=== PATIENT | female | born 1940 | race Caucasian/White ===

== ENCOUNTER 2021-05-31 09:19 | Day surgery (SDC) | payer MEDICARE, OTHER ==
[2021-05-30 11:57] VITALS: BMI 25.4
[~2021-05-31 09:19] MED LIST: LACTATED RINGERS 1,000 ML IV SCH
[2021-05-31 09:56] VITALS: TEMP 97.6
[2021-05-31] MEDS ORDERED: LIDOCAINE 1% INJ 10MG/ML (20 ML MDV) ONE (10:46)
[2021-05-31] MEDS ORDERED: PROPOFOL 10 MG/ML 20 ML VIAL IV ONE (10:46)
--- NOTE | 2021-05-31 11:18 | P.PCN ---
Date of Procedure: 05/31/21 Procedure(s) Performed: Brief history: Patient is a pleasant 80-year-old pleasant white female scheduled for an elective upper endoscopy as well as colonoscopy as a part of evaluation of I deficiency anemia. No prior history of EGD or colonoscopy in the past. She denies any GI symptoms. Procedure performed: Esophagogastroduodenoscopy with biopsy Colonoscopy with argon plasma coagulation Preoperative diagnosis: Iron deficiency anemia Anesthesia: MAC Procedure: After informed consent was obtained from the patient was brought into the endoscopy unit and IV sedation was administered by anesthesia under continuous monitoring. Initially upper endoscopy was done. The Olympus GF 160 video end oscope was inserted inserted into the mouth and esophagus intubated without any difficulty and was gradually advanced into the stomach and duodenum and carefully examined. The bulb and second part of the duodenum appeared normal. The scope was then withdrawn into the stomach adequately insufflated with air and upon careful examination the antrum and body, cardia and fundus appeared normal. The scope was then withdrawn into the esophagus. The GE junction was located at 40 cm to the incisors. It appeared regular with no erythema erosions or ulcerations. Rest of the esophagus appeared normal. Patient tolerated the procedure well. At this time the patient continued to remain sedation. Initial digital rectal examination was normal. Olympus CF 160 video colonoscope was then inserted into the rectum and gradually advanced to the cecum with mild to moderate difficulty. Careful examination was performed as the scope was gradually being withdrawn. The prep was fair. In the base of the cecum there was a 1 cm nonbleeding arteriovenous malformation that was coagulated using argon plasma. The rest of the cecum, ascending colon, transverse colon, descending colon, sigmoid colon and rectum appeared normal. Moderate sigmoid diverticulosis seen. Retroflexion was performed in the rectum and no lesions were noted. Patient tolerated the procedure well. Impression: 1. Upper endoscopy revealed mild antral gastritis 2. 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 She was advised to follow with the biopsy results. She will continue with iron supplements and monitor CBC on a frequent basis.
[2021-05-31 11:37] VITALS: BP 128/74; PULSE 80; RESP 20
== END 2021-05-31 12:00 | disposition home or self-care (01) ==
LOC: ORWHC2ENDO 09:19
PROVIDERS: ATTEND Internal Medicine Gastroenterology
DX: K29.50 Unspecified chronic gastritis without bleeding (principal); Q27.33 Arteriovenous malformation of digestive system vessel; K57.30 Diverticulosis of large intestine without perforation or abscess without bleeding; D50.9 Iron deficiency anemia, unspecified; Z97.2 Presence of dental prosthetic device (complete) (partial); Z79.1 Long term (current) use of non-steroidal anti-inflammatories (NSAID); Z79.899 Other long term (current) drug therapy
CPT/HCPCS: 88305; 43239; 45388; J2001; J2704; 45382

== ENCOUNTER 2023-09-29 19:50 | Emergency (ER) | payer MEDICARE, OTHER ==
--- NOTE | 2023-09-29 19:52 | ED ---
General Adult HPI - General Source: patient, family, RN notes reviewed Mode of arrival: ambulatory Limitations: altered mental status <Jeffrey Epstein - Last Filed: 09/29/23 19:52> - General Source: patient, family, RN notes reviewed Mode of arrival: ambulatory Limitations: no limitations <Ovidio Lynch - Last Filed: 09/29/23 21:14> - General Stated complaint: FALL Time Seen by Provider: 09/29/23 19:52 - History of Present Illness Initial comments: 83-year-old female presents emergency Department with family for evaluation of fall, head injury. Patient fell around 3 afternoon patient has been very confused and % patient's noted have elevated blood pressure. Patient denies any blood thinners. (Jeffrey Epstein) Patient is a pleasant 83-year-old female presenting to the emergency department following a fall. Incident occurred today. Patient tripped and fell and landed striking her left forehead. Patient only has discomfort with motion of this area otherwise no discomfort at all. No neck or back pain. Patient does not feel confused. Family is concerned that patient is not oriented to the day. Normally patient is. No chest pain or dyspnea. No extremity injury. (Ovidio Lynch) - Related Data Home Medications Medication Instructions Recorded Confirmed Calcium Carbonate/Vitamin D3 1 each PO DAILY 05/31/21 05/31/21 [Calcium 500 mg Chewable Tablet] Cholecalciferol (Vitamin D3) 4,000 unit PO DAILY 05/31/21 05/31/21 [Vitamin D3 (4,000 Iu)] Multivitamin [Multivitamins Adult 1 each PO DAILY 05/31/21 05/31/21 Gummies] Topiramate 50 mg PO BID 05/31/21 05/31/21 Allergies Allergy/AdvReac Type Severity Reaction Status Date / Time No Known Allergies Allergy Verified 09/29/23 20:23 Review of Systems ROS Other: All systems not noted in ROS Statement are negative. <Jeffrey Epstein - Last Filed: 09/29/23 19:52> ROS Other: All systems not noted in ROS Statement are negative. Constitutional: Denies: fever Eyes: Denies: eye pain ENT: Denies: ear pain Respiratory: Denies: cough, dyspnea Cardiovascular: Denies: chest pain Endocrine: Denies: fatigue Gastrointestinal: Denies: abdominal pain Genitourinary: Denies: urgency Musculoskeletal: Denies: back pain Neurological: Reports: as per HPI <Ovidio Lynch - Last Filed: 09/29/23 21:14> ROS Statement: Those systems with pertinent positive or pertinent negative responses have been documented in the HPI. Past Medical History Past Medical History: Osteoarthritis (OA) Additional Past Medical History / Comment(s): "blood work is low", tremors, History of Any Multi-Drug Resistant Organisms: None Reported Past Surgical History: Appendectomy Additional Past Surgical History / Comment(s): EGD, ria cataracts Past Anesthesia/Blood Transfusion Reactions: No Reported Reaction Smoking Status: Former smoker - Past Family History Mother Family Medical History: No Reported History <LucianJeffrey Mcleod - Last Filed: 09/29/23 19:52> General Exam General appearance: alert, in no apparent distress <LucianJeffrey Mcleod - Last Filed: 09/29/23 19:52> Limitations: no limitations General appearance: alert, in no apparent distress Head exam: Present: other (Abrasions above the left eyebrow. No other areas of swelling or tenderness.) Eye exam: Present: normal appearance, PERRL, EOMI ENT exam: Present: normal oropharynx Neck exam: Present: normal inspection. Absent: tenderness Respiratory exam: Present: normal lung sounds bilaterally Cardiovascular Exam: Present: regular rate, normal rhythm GI/Abdominal exam: Present: soft. Absent: tenderness Neurological exam: Present: alert, CN II-XII intact. Absent: motor sensory deficit Expanded Patient oriented to: Present: person, place. Absent: time (Patient is oriented to month and year but not daily) Cranial nerves: EOM's Intact: Normal, Facial Sensation: Normal Sensory exam: Upper Extremity Light Touch: Normal, Lower Extremity Light Touch: Normal Motor strength exam: RUE: 5, LUE: 5, RLE: 5, LLE: 5 Eye Response: (4) open spontaneously Motor Response: (6) obeys commands Verbal Response: (4) confused conversation Psychiatric exam: Present: normal affect, normal mood Skin exam: Present: normal color <Ovidio Lynch - Last Filed: 09/29/23 21:14> - General Exam Comments Initial Comments: Visual Physical Exam Vital signs reviewed General: Well-appearing, nontoxic, no acute distress. Head: Normocephalic, atraumatic Eyes: PERRLA, EOMI ENT: Airway patent Chest: Nonlabored breathing Skin: No visual rash, normal skin tone Neuro: Alert and oriented 3 Musculoskeletal: No gross abnormalities (Jeffrey Epstein) Course Vital Signs 09/29/23 09/29/23 20:17 21:03 Temperature 98.2 F Pulse Rate 119 H 89 Respiratory 17 17 Rate Blood Pressure 160/97 161/85 O2 Sat by Pulse 96 96 Oximetry Medical Decision Making <Jeffrey Epstein - Last Filed: 09/29/23 19:52> <Ovidio Lynch - Last Filed: 09/29/23 21:14> - Medical Decision Making I completed the quick note portion of this chart signed Jeffrey Epstein PA-C (Jeffrey Epstein) Was pt. sent in by a medical professional or institution ([facility], ORDER PICKER/ASSEMBLER, urgent care, hospital, or fdc...) When possible be specific @ -No Did you speak to anyone other than the patient for history (EMS, parent, family, police, friend...)? What history was obtained from this source @ -Family also provide history of the incident Did you review nursing and triage notes (agree or disagree)? Why? @ -I reviewed and agree with nursing and triage notes Were old charts reviewed (outside hosp., previous admission, EMS record, old EKG, old radiological studies, urgent care reports/EKG's, fdc records)? Report findings @ -No old charts were reviewed Differential Diagnosis (chest pain, altered mental status, abdominal pain women, abdominal pain men, vaginal bleeding, weakness, fever, dyspnea, syncope, headache, dizziness, GI bleed, back pain, seizure, CVA, palpatations, mental health, musculoskeletal)? @ -not applicable EKG interpreted by me (3pts min.). @ -As above X-rays interpreted by me (1pt min.). @ -None done CT interpreted by me (1pt min.). @ -Computed tomography scan of the brain shows some erosion of the right high temporal/parietal region. No acute intercranial process. CT cervical spine report reviewed U/S interpreted by me (1pt. min.). @ -None done What testing was considered but not performed or refused? (CT, X-rays, U/S, labs)? Why? @ -None What meds were considered but not given or refused? Why? @ -None Did you discuss the management of the patient with other professionals (professionals i.e. DrGarcia, PA, ORDER PICKER/ASSEMBLER, lab, RT, psych nurse, social worker psychiatric, architecture drafter, teacher, loss prevention officer, comp field case manager)? Give summary @ -No Was smoking cessation discussed for >3mins.? @ -No Was critical care preformed (if so, how long)? @ -No Were there social determinants of health that impacted care today? How? (Homelessness, low income, unemployed, alcoholism, drug addiction, transportation, low edu. Level, literacy, decrease access to med. care, fdc, rehab)? @ -No Was there de-escalation of care discussed even if they declined (Discuss DNR or withdrawal of care, Hospice)? DNR status @ -No What co-morbidities impacted this encounter? (DM, HTN, Smoking, COPD, CAD, Cancer, CVA, ARF, Chemo, Hep., AIDS, mental health diagnosis, sleep apnea, morbid obesity)? @ -None Was patient admitted / discharged? Hospital course, mention meds given and route, prescriptions, significant lab abnormalities, going to OR and other pertinent info. @ -Patient reevaluated and resting comfortably in bed. Further discussion with the patient and she does agree on the appropriate day. Patient was reevaluated and is oriented. Patient advised only Tylenol if needed. Family will stay with patient. Patient will do close follow-up with her primary care physician. Undiagnosed new problem with uncertain prognosis? @ -No Drug Therapy requiring intensive monitoring for toxicity (Heparin, Nitro, Insulin, Cardizem)? @ -No Were any procedures done? @ -No Diagnosis/symptom? @ -Head contusion Acute, or Chronic, or Acute on Chronic? @ -Acute Uncomplicated (without systemic symptoms) or Complicated (systemic symptoms)? @ -default Side effects of treatment? @ -No Exacerbation, Progression, or Severe Exacerbation? @ -No Poses a threat to life or bodily function? How? (Chest pain, [place], [place], pneumonia, PE, COPD, DKA, ARF, appy, cholecystitis, CVA, Diverticulitis, Homicidal, Suicidal, threat to staff... and all critical care pts) @ -No (Ovidio Lynch) Disposition <Jeffrey Epstein - Last Filed: 09/29/23 19:52> Is patient prescribed a controlled substance at d/c from ED?: No Time of Disposition: 21:14 <Ovidio Lynch - Last Filed: 09/29/23 21:14> Clinical Impression: Head contusion Disposition: HOME SELF-CARE Condition: Stable Instructions (If sedation given, give patient instructions): Head Injury (ED), Concussion (ED) Additional Instructions: [id number] Tylenol if needed. Ice to affected area. Please follow-up with primary care physician in the next day or 2 for recheck. Return for weakness, confusion, worsening or changing symptoms or any other concerns. Have primary care physician review computed tomography scan done today and consider MRI Referrals: Lyle Oliver MD [Primary Care Provider] - 1-2 days
[2023-09-29 20:37] VITALS: RESP 17; TEMP 98.2
--- NOTE | 2023-09-29 20:51 | CT ---
EXAMINATION TYPE: CT brain cspine wo con CT DLP: 1339.3 mGycm, Automated exposure control for dose reduction was used. DATE OF EXAM: 09/29/2023 8:16 PM COMPARISON: None. CLINICAL INDICATION:Female, 83 years old with history of pain,confusion; Fall, confusion. TECHNIQUE: Brain: Multiple axial CT images of the brain were obtained without IV contrast. Cspine: Axial CT images from the skull base to the inferior aspect of T2 we obtained without intraven ous contrast. Coronal and sagittal reformatted images were also reviewed. FINDINGS: Brain: Extra-axial spaces: No abnormal extra-axial fluid collections. Ventricular system: Dilatation in proportion to cerebral atrophy. Cerebral parenchyma: Cerebral atrophy. No acute intraparenchymal hemorrhage or mass effect. The kerr -white junction is well differentiated. Scattered hypoattenuating areas are seen within the white mat ter. Cerebellum: Unremarkable. Mass effect: No evidence of midline shift. Intracranial vasculature: Atherosclerotic calcifications of the intracranial vessels. Soft tissues: Normal. Calvarium/osseous structures: No depressed skull fracture. There is erosion of the inner table of the skull on the right low in the right parietal bone measuring up to 22 x 27 mm. Paranasal sinuses and mastoid air cells: Clear. Visualized orbits: Orbital contents are intact. Cervical spine: Fracture: None. Osseous structures: Multilevel degenerative disc disease changes with endplate spurring and disc oste ophyte complex's. Vertebral alignment: grade 1 anterolisthesis of C3 on C4. Spinal canal/Neural Foramina: Disc osteophyte complexes at C3-C6 with at least mild spinal canal sten osis. Facet joint uncovertebral joint arthropathy scattered throughout the cervical spine with varyin g degrees of neural foraminal stenosis. Neck soft tissues: Prevertebral soft tissues are within normal limits. IMPRESSION: 1. No acute intracranial process. 2. Nonspecific white matter changes, likely secondary to chronic small vessel ischemic disease. 3. There is erosion of the inner table of the right skull with beveled edges. Further evaluation rec ommended with nonemergent MRI with contrast. Correlate with priors at outside institutions for stabil ity. 4. No evidence of cervical spine fracture. 5. Mild multilevel degenerative disc disease.
[2023-09-29 21:41] VITALS: BP 133/76; PULSE 83
== END 2023-09-29 21:35 | disposition home or self-care (01) ==
LOC: EC 19:50
DX: S00.93XA Contusion of unspecified part of head, initial encounter (principal); Z87.891 Personal history of nicotine dependence; W01.0XXA Fall on same level from slipping, tripping and stumbling without subsequent striking against object, initial encounter
CPT/HCPCS: 70450; 72125; 99284